=== PATIENT | female | born 1965 | race Caucasian/White ===

== ENCOUNTER 2018-12-04 15:13 | Inpatient (IN) ==
[2018-12-04] MEDS ORDERED: NS 1,000 ML IV ONE ×3 (15:54→17:27)
--- NOTE | 2018-12-04 16:09 | PROVIDER DOCUMENTATION ---
This chart was entered by Ani Kincaid Scribe, acting as scribe for Ahsan Payan CRNP. HPI-General Adult - General Chief Complaint: Flank Pain Stated Complaint: FLANK PAIN Time Seen by Provider: 12/04/18 15:45 Source: patient, family - History of Present Illness -Gen Adult Nature of Presenting Problems: 53 yowf presents to the ed with c/o rt flank/CVA pain onset ths am with nausea. pt has dark urine Location of Pain/Injury: reports: back Quality of Pain: reports: throbbing Severity: reports: moderate Onset/Duration: reports: this morning Timing: reports: still present Context/Activities at Onset: reports: light activity Modifying Factors: improves with: nothing. worse with: urinating Associated Symptoms: reports: back/neck pain (flank pain), genitourinary problems (dark urine), nausea. denies: chest pain, cough, diarrhea, fatigue, fever/chills, shortness of breath, vomiting Similar Symptoms Previously?: No Recently seen or treated by another doctor?: No Review of Systems - Adult - REVIEW OF SYSTEMS - ADULT Constitutional: denies: chills, fever Eyes: reports: no symptoms reported Ears, Nose, Mouth & Throat: reports: no symptoms reported Cardiovascular: denies: chest pain, palpitations Respiratory: denies: cough, shortness of breath, wheezing Gastrointestinal: reports: nausea. denies: abdominal pain, diarrhea, vomiting Genitourinary: reports: see HPI, flank pain, other (drk urine) Musculoskeletal: reports: see HPI, back pain. denies: neck pain Integumentary: reports: no symptoms reported Neurological: reports: no symptoms reported Psychiatric: reports: no symptoms reported Endocrine: reports: no symptoms reported Hematologic/Lymphatic: reports: no symptoms reported Allergic/Immunologic: reports: no symptoms reported All Other Systems: Reviewed and Negative Past History - Adult - PAST MEDICAL HISTORY-ADULT Review of Records: reports: Old Records Reviewed, Nursing Assessment Review, Medications Reviewed, Social history reviewed & non-contributory. Major Childhood Illnesses: reports: denies history Cardiovascular: reports: denies history Respiratory: reports: denies history Gastrointestinal: reports: denies history Obstetrical/Gynecological: reports: denies history Genitourinary: reports: other (kidney repair as a child) Musculoskeletal: reports: denies history Neurological: reports: denies history Endocrine/Immune: reports: denies history Other Conditions: reports: denies history - PRIOR SURGERIES/PROCEDURES Surgical/Procedure History: reports: reviewed, not pertinent - IMMUNIZATION STATUS Childhood Immunizations: See Nurse Assessment Flu Vaccine: See Nurse Assessment - FAMILY HISTORY Family History: reviewed, not pertinent - SOCIAL HISTORY Smoking: cigarettes, greater than 1 pack/day Provider spent 3-5 mins advising pt. on dangers of tobacco.: Discussed manners to quit use, and f/u contacts for add'l counseling. Substance Use: denies Alcohol Use Frequency: never Living Situation: family Physical Exam-General - PHYSICAL EXAM-ADULT Initial Vital Signs Reviewed: Yes - CONSTITUTIONAL General Appearance: appears well, alert, mild distress - EYES Eyes: PERRL/EOMI, pink conjunctivae - HEAD, EARS, NOSE, MOUTH & THROAT HENMT: moist mucous membranes - NECK Neck: non-tender, full range of motion, supple, normal inspection - RESPIRATORY Respiratory: chest non-tender, lungs clear, normal breath sounds - CARDIOVASCULAR Cardiovascular: normal peripheral pulses, regular rate, rhythm, no edema - CHEST (BREASTS) Chest/Breast: deferred - GASTROINTESTINAL (ABDOMEN) Abdominal Exam: normal bowel sounds, non tender, soft - GENITOURINARY Female Genitalia/Pelvic Exam: deferred, other (dark urine) Rectal Exam: deferred Hemoccult Exam: deferred - LYMPHATIC Lymphatic: no adenopathy - MUSCULOSKELETAL Back Exam: CVA tenderness (rt sided) Extremity: normal range of motion, non-tender, normal gait, normal inspection, normal capillary refill, pelvis stable - SKIN Integumentary: normal color, normal turgor, warm/dry - NEUROLOGIC Neurologic: grossly normal - PSYCHIATRIC Psych/Mental Status: normal mood/affect, normal thought content, normal thought process, oriented x 3 Progress - PLAN OF CARE/RESULTS Progress/Plan/Lab Results: Vital Signs - 8 hr 12/04/18 15:35 12/04/18 15:37 Temperature 98.8 F 98.8 F Pulse Rate 98 H 98 H Respiratory Rate 18 16 Blood Pressure 127/71 127/71 O2 Sat by Pulse Oximetry 100 100 Orders Category Date Time Status Saline Loc NOW Care 12/04/18 15:54 Active CBC WITH ELECTRONIC DIFF [HEME] Stat Lab 12/04/18 15:45 Uncollected COMPREHENSIVE METABOLIC PANEL [CHEM] Stat Lab 12/04/18 15:45 Uncollected UA NIMS W/REFLEX CULT [URINALYSIS] Stat Lab 12/04/18 15:44 Ordered 0.9% Sodium Chloride Inj [Ns] 1,000 ml Med 12/04/18 15:54 Active IV 999 mls/hr Laboratory Tests 12/04/18 12/04/18 12/04/18 15:50 16:05 16:05 WBC 31.90 H RBC 4.52 Hgb 13.5 Hct 39.6 MCV 87.6 MCH 29.9 MCHC 34.1 RDW Std Deviation 13.4 Plt Count 343 MPV 9.6 Immature Gran % (Auto) 0.7 H Neut % (Auto) 93.5 H Lymph % (Auto) 1.2 L [place] % (Auto) 4.5 Eos % (Auto) 0.0 Baso % (Auto) 0.1 Immature Gran # (Auto) 0.23 H Neut # (Auto) 29.84 H Lymph # (Auto) 0.38 L [place] # (Auto) 1.42 H Eos # (Auto) 0.00 Baso # (Auto) 0.03 Segmented Neutrophils 91 H Band Neutrophils 4 H Lymphocytes 3 L Monocytes 2 Pathologist Review Sodium 138 Potassium 3.5 Chloride 99 Carbon Dioxide 24 L Anion Gap 15 BUN 13 Creatinine 0.9 Estimated GFR/1.73 m2 > 60 BUN/Creatinine Ratio 14 Glucose 135 H Calculated Osmolality 278 Calcium 8.8 Total Bilirubin 0.90 AST 16 ALT 12 Alkaline Phosphatase 80 Total Protein 6.8 Albumin 4.1 Globulin 2.7 Albumin/Globulin Ratio 1.5 Urine Source CLEAN CATCH Urine Color YELLOW Urine Turbidity HAZY Urine pH 8.0 Ur Specific [place] 1.013 Urine Protein TRACE A Ur Glucose (Stick) NEGATIVE Ur Ketones (Stick) NEGATIVE Urine Blood TRACE A Urine Nitrite POSITIVE A Urine Bilirubin NEGATIVE Urobilinogen Dipstick NORMAL Urine Leukocytes LARGE A Urine WBC (Auto) TNTC A Urine RBC (Auto) <10 U Epithel Cells (Auto) <10 Urine Bacteria (Auto) 4+ Discussed results and plan of care with patient. Patient agrees with plan and verbalizes understanding. Result Diagrams: 12/04/18 16:05 12/04/18 16:05 - CONSULTS/PCP/HOSPITALIST Notification #1 *Consult/PCP/Hospitalist*: Dr. Faust Time Discussed: 17:27 Reason/Comments: Admission Consult Disposition: Admit (get a renal stone search and admit) Departure - Departure Date of Disposition Decision: 12/04/18 Time of Disposition Decision: 17:24 DIAGNOSIS: Tobacco use disorder, Pyelonephritis Disposition: ADMITTED INPATIENT 09 Certified Medical Emergency: Emergent Condition: Stable Referrals and Follow-Ups: Nidia Faust MD [Primary Care Provider] - - Critical Care Note This patient required my direct & personal management of CC.: No Attestation - Physician/ JONAS Attestation Patient care was provided by Advanced Practice Provider:: Yes Advanced Practice Provider:: Ahsan Payan Advanced Practice Provider documentation review:: The Mid-level provider documentation, treatment plan and medical decision making was reviewed by the physician who agrees with all treatment and medical decision making by the MLP. The physician spent face to face time with patient:: No Advanced Practice Provider documentation review:: Supervising physician onsite and consulted in the evaluation and care of this patient. The physician did not have a face to face encounter with the patient. This chart was documented by the indicated scribe, (Ani Kincaid Scribe) and accurately reflects the services I performed and decisions made by me, Ahsan Payan CRNP, as attested by the provider's signature.
[2018-12-04 16:10] LABS: URINE SOURCE CLEAN CATCH
[2018-12-04 16:19] LABS: BILIRUBIN URINE NEGATIVE (NEGATIVE); BLOOD URINE TRACE (NEGATIVE); COLOR YELLOW; GLUCOSE URINE NEGATIVE (NEGATIVE); KETONE URINE NEGATIVE (NEGATIVE); LEUKOCYTES URINE LARGE (NEGATIVE); NITRITE URINE POSITIVE (NEGATIVE); PROTEIN URINE TRACE mg/dL (NEGATIVE); SP GRAVITY URINE 1.013; TURBIDITY URINE HAZY (CLEAR); UROBILINOGEN URINE NORMAL (NORMAL)
[2018-12-04 16:20] LABS: UR EPITHELIAL CELLS <10 /HPF (<10); URINE BACTERIA 4+ /HPF; URINE RBC <10 /HPF (<10); URINE WBC TNTC /HPF (<10)
[2018-12-04 16:24] LABS: BASO# 0.03 X1000 (0.0-0.2); BASO% 0.1 % (0.0-0.8); HEMATOCRIT 39.6 % (37.0-47.0); HEMOGLOBIN 13.5 g/dL (12.0-16.0); IMM GRAN# 0.23 X1000 (0.0-0.04); IMM GRAN% 0.7 % (0.0-0.5); LYMPH# 0.38 X1000 (1.2-3.4); LYMPH% 1.2 % (20.5-51.1); MCH 29.9 PG (27-31); MCHC 34.1 g/dL (33-37); MCV 87.6 FL (81-99); MONO# 1.42 X1000 (0.11-0.59); MONO% 4.5 % (1.7-9.3); MPV 9.6 FL (7.4-10.4); NEUT# 29.84 X1000 (1.4-6.5); NEUT% 93.5 % (42.2-75.2); PLT 343 X1000 (130-400); RBC 4.52 XMIL (4.2-5.4); RDW 13.4 % (11.5-14.5)
[2018-12-04] MEDS ORDERED: ROCEPHIN 1 GM in NS 50 ML IV ONE (16:37)
[2018-12-04 16:41] LABS: AGAP 15; ALB/GLOB RATIO 1.5; ALBUMIN 4.1 g/dL (3.5-5.0); ALKALINE PHOSPHATASE 80 U/L (32-104); BUN 13 mg/dL (8-22); CALCIUM 8.8 mg/dL (8.8-10.2); CHLORIDE 99 mmol/L (98-107); COSMO 278; CREATININE 0.9 mg/dL (0.5-0.9); ESTIMATED GFR > 60; GLUCOSE 135 mg/dL (70-104); GOT 16 U/L (10-30); GPT 12 U/L (10-36); POTASSIUM 3.5 mmol/L (3.5-5.1); SODIUM 138 mmol/L (136-145); TCO2 24 mmol/L (25-35); TOTAL PROTEIN 6.8 g/dL (6.3-8.3)
[2018-12-04 16:55] LABS: BANDS 4 % (0-1); LYMPHS 3 % (21-51); MONO 2 % (1-9); SEGS 91 % (42-75)
[2018-12-04] MEDS ORDERED: NS 1,000 ML ONE (17:19)
[2018-12-04] MEDS ORDERED: ZOFRAN IV ONE (17:22)
[2018-12-04] MEDS ORDERED: MORPHINE IV ONE (17:22)
[2018-12-04] MEDS ORDERED: ZOFRAN IV PRN (17:27)
[2018-12-04] MEDS ORDERED: MORPHINE IV PRN (17:27)
[2018-12-04] MEDS ORDERED: NS 1,000 ML IV SCH (19:00)
--- NOTE | 2018-12-04 19:54 | HISTORY AND PHYSICAL ---
CHIEF COMPLAINT: Right flank pain going to the groin since this morning. HISTORY OF PRESENT ILLNESS: She is a 53-year-old white female who is well known to me with above problems for a one day duration. The patient was seen in the emergency room. She has pyelonephritis on the right side. White cell count 30,000. Urine dipstick positive for infection. She has history of kidney stones. Waiting for CT Renal Stone Search. Basically, admitted to the hospital with pyelonephritis and waiting for results on CT Renal Stone Search. PAST MEDICAL HISTORY: Kidney stones. PAST SURGICAL HISTORY: Right pyeloplasty when she was 13 years old by in [place]. ALLERGIES: Penicillin. MEDICINES: None, other than Bactrim a month ago for UTI. SOCIAL HISTORY: . No children. Postmenopausal. Smoking one pack a day. No alcohol. Working as a manager shipping. FAMILY HISTORY: Dad of MVA. Mom is alive at 62 with diabetes. REVIEW OF SYSTEMS: HEENT: No headache. No vision problem. No earache. No sore throat. Neck: No goiter. No lymphadenopathy. No bruit. Cardiopulmonary: No chest pain, shortness of breath, PND, orthopnea. Gastrointestinal: Right flank pain going to the groin. Nausea , excruciating pain. Fever. Pelvic: Postmenopausal. Nulliparous. Extremities: No swelling of legs. No joint pain. Neurologic: No focal symptoms or weakness. EXAMINATION: Vital Signs: Low-grade fever. Vitals are stable. 5 feet 5; 130 pounds. HEENT: Atraumatic, normocephalic. Pupils equal, reactive to light. TMs are normal. Nose and throat within normal limits. Neck: Supple. No lymphadenopathy. Chest: Bilateral air entry. Heart: Heart sounds are regular, tachycardic. No murmur. Abdomen: Belly is soft. Tender in the right flank area. No signs of peritonitis. Extremities: No peripheral edema , cyanosis. Neurologic: No obvious neurological deficits. INVESTIGATIONS: CBC: White cell count 31, hematocrit 39, platelets 343,000. SMA-7 is normal. Urinalysis positive for infection. CT Renal Stone Search is pending. Chest x-ray stable. ASSESSMENT AND PLAN: A 53-year-old white female admitted to the hospital with right pyelonephritis, elevated white cell count. Possible kidney stones. Plan is IV fluids, IV Levaquin and gentamicin. Pain control with Dilaudid. GI prophylaxis with IV Protonix and Zofran for p.r.n. nausea. Follow up on the pending test and repeat the labs in the morning. cc: Pascual Faust MD MTDD
--- NOTE | 2018-12-04 20:03 | Diag Imaging Result Doc PS360 ---
EXAM: CT RENAL STONE SEARCH INDICATION: right flank pain TECHNIQUE: This exam was performed using automated exposure control, adjustment of mA or kV according to patient size, and/or use of iterative reconstruction technique. COMPARISON: None. FINDINGS: There is opacity at the right lung base suggesting mild subsegmental atelectasis and/or infiltrate. There is trace nonspecific fluid tracking around the liver. The liver, gallbladder, spleen, pancreas, and adrenal glands are grossly unremarkable as imaged. There is bilateral nephrolithiasis including a collection of prominent stones in the right renal pelvis. There is prominent right perinephric stranding and stranding along the right ureter. No obstructing ureteral stone is identified. There is a 7 mm stone that is in the lumen of the urinary bladder on the right. The right renal pelvis and right ureter are somewhat dilated. This stone probably recently passed from the right ureter. The urinary bladder is unremarkable, otherwise. There is an IUD in the endometrial cavity. The reproductive tract is grossly unremarkable, otherwise. The GI tract is essentially unremarkable. IMPRESSION: 1.Bilateral nephrolithiasis with perinephric stranding around the right kidney as well as right periureteral stranding and mild prominence of the right renal collecting system and right ureter with a 7 mm stone in the lumen of the urinary bladder on the right that probably recently passed from the right ureter. 2.Other incidental/nonacute findings detailed above. Electronically signed by Mckay Cunningham 12/04/2018 8:01 PM
[2018-12-04] MEDS: LEVAQUIN 500 MG/D5W 500 MG/100 ML IVPB IV SCH (20:18)
[2018-12-04] MEDS: PROTONIX IV SCH (20:19)
--- NOTE | 2018-12-04 20:20 | Diag Imaging Result Doc PS360 ---
EXAM: CHEST-PORTABLE INDICATION: admit TECHNIQUE: One view COMPARISON: None. FINDINGS: The lungs are grossly clear. There is no discrete pleural fluid collection or pneumothorax. The cardiomediastinal silhouette and central vasculature are grossly unremarkable. IMPRESSION: No evidence of acute pathology by plain radiograph. Electronically signed by Mckay Cunningham 12/04/2018 8:18 PM
[2018-12-04] MEDS: TYLENOL PO PRN (21:02)
[2018-12-04 21:57] LABS: INR 1.07; PROTIME 14.8 Seconds (11.0-16.0)
[2018-12-04 21:58] LABS: PTT 32.9 Seconds (22.3-41.8)
[2018-12-05] MEDS: NS 1,000 ML IV SCH ×3 (01:34→17:02)
[2018-12-05 08:46] LABS: CALCIUM 7.4 mg/dL (8.8-10.2); POTASSIUM 3.5 mmol/L (3.5-5.1)
[2018-12-05 09:00] LABS: HEMOGLOBIN 11.8 g/dL (12.0-16.0); MCH 29.7 PG (27-31); MCHC 33.7 g/dL (33-37); MCV 88.2 FL (81-99); RBC 3.97 XMIL (4.2-5.4); WBC 32.74 X1000 (4.8-10.8)
[2018-12-05] MEDS ORDERED: CALCIUM GLUCONATE 1 GM in NS 50 ML IV ONE (09:12)
[2018-12-05] MEDS: DILAUDID IV PRN ×2 (11:02→17:02)
[2018-12-05] MEDS ORDERED: ROCEPHIN 1 GM in NS 50 ML IV SCH (17:30)
[2018-12-05] MEDS ORDERED: NEOSPORIN G.U. IRRIGANT ONE (17:40)
[2018-12-05] MEDS ORDERED: DIPRIVAN 1% ONE (18:09)
[2018-12-05] MEDS ORDERED: XYLOCAINE-MPF 2% ONE (18:09)
[2018-12-05] MEDS ORDERED: ROBINUL ONE (18:15)
[2018-12-05] MEDS ORDERED: ZOFRAN ONE (18:27)
[2018-12-05] MEDS ORDERED: FENTANYL ONE (18:29)
--- NOTE | 2018-12-05 18:31 | PROGRESS NOTE ---
DATE: 12/05/2018 SUBJECTIVE: The patient is a little stable, still fever, elevated white cell count. CT renal stone search discussed with Dr. Cunningham, radiologist airways operations specialist. Big stone in the right renal pelvis and 7 mm stone in the bladder. She also has intrarenal stones on the left side. OBJECTIVE: Vital signs: Temperature is 98 degrees, pulse is 96. Hemodynamics are stable. HEENT: Within normal limits. Chest: Clear. Heart: Sounds are regular. Belly: Is soft. Tender in the right side. No signs of peritonitis. LABS: CBC. White cell count 32, hematocrit 35, platelets 265,000. SMA 7 sodium 138, potassium 3.5, BUN 14, creatinine 1.0, glucose 113, calcium 7.4. Urine cultures positive for gram-negative rods. Blood cultures are pending. 1. Right-sided pyelonephritis with kidney stone disease. Consult with Dr. Leslie. Discussed with him on the phone. In the meantime continue hydromorphone. 2. Continue IV fluids. 3. IV antibiotics with Levaquin and gentamicin. 4. Hypocalcemia, calcium gluconate. Follow up on CBC, BMP. Appreciated Dr. Leslie' consult and Dr. Monterroso is airways operations specialist this weekend. LEVEL OF DOCUMENTATION: 25 minutes. cc: Pascual Faust MD
[2018-12-05] MEDS ORDERED: NEO-SYNEPHRINE ONE (18:34)
[2018-12-05] MEDS ORDERED: SODIUM CHLORIDE 0.9% 10 ML ONE (18:34)
[2018-12-05] MEDS: LEVAQUIN 500 MG/D5W 500 MG/100 ML IVPB IV SCH (18:40)
[2018-12-05] MEDS: DITROPAN ONE ×2 (19:22→20:38)
[2018-12-05] MEDS: PROTONIX IV SCH (20:38)
--- NOTE | 2018-12-05 20:57 | OPERATIVE NOTE ---
PROCEDURE DATE: 12/05/2018 SURGEON: Igor Leslie MD. PREOPERATIVE DIAGNOSIS: Right pyelonephritis with right renal pelvic stone. POSTOPERATIVE DIAGNOSIS: Right pyelonephritis with right renal pelvic stone. PROCEDURE PERFORMED: Cystoscopic exam, right retrograde ureteral pyelogram, place right double-J stent. ANESTHESIA: General via laryngeal mask. FINDINGS: Cystoscopic exam: Urethra-greater than 21 Maur[place] without stricture. Bladder-normal ureteral orifices bilaterally. There was increased redness around the right ureteral orifice consistent with a recently passed stone. No papillary lesions, trabeculations or diverticula. Right retrograde ureteral pyelogram reveals a normal ureter that goes up into the right renal pelvis. Complete retrograde was not performed to ensure no back pressure was placed to cause infected urine to be placed intravenously. exam normal external female. Normal mucosa. No adnexal masses or tenderness. Palpably normal cervix and uterus. INDICATION FOR PROCEDURE: This 53-year-old female with history of renal lithiasis developed right flank pain and fevers. Evaluation revealed right pyelonephritis with a large right renal pelvic stone. Also noted were very small bilateral renal stones. DESCRIPTION OF PROCEDURE: After informed consent was obtained from the patient and her receiving her routine IV antibiotics, she was taken to the main OR cystoscopy room, placed in supine position. General anesthesia via laryngeal mask was achieved. She was then placed in the low lithotomy position and prepped and draped in the usual sterile fashion for cystoscopic exam. A 21- Mauritian sheath cystoscope was passed through the patient's urethra and bladder, findings noted above. An 8-Mauritian cone-tip catheter was passed through the cystoscope, engaged the right ureteral orifice. Contrast was injected. Findings as noted above. The 8-Mauritian cone-tipped catheter was removed. A 0.035 ZIPwire was passed through the cystoscope and up the right ureter and coiled around the stone. A 7-Mauritian 24 cm double-J stent was passed over the ZIPwire and up into the kidney. The stent removal string was removed. The renal end verified by fluoroscopic exam, bladder end directly visualized. Bladder was drained. Cystoscope was removed. exam performed. Tolerated the procedure well. Estimated blood loss was zero. She was taken to recovery room in good condition. cc: MD Pascual Ferrer MD
--- NOTE | 2018-12-05 21:15 | CONSULTATION ---
DATE OF CONSULTATION: 12/05/2018 CONSULTING PHYSICIAN: Dr. Leslie. REFERRING AND ATTENDING PHYSICIAN: Dr. Faust. HISTORY OF PRESENT ILLNESS: This 53-year-old female has a history of right flank pain and urinary tract infection. Evaluation revealed a right pyelonephritis with a white count of over 30,000. Her CT stone search revealed a 2 cm stone in the right renal pelvis. There was also a much tiny year stone in the lower pole kidney. On the left there was a stone that was probably 2 mm nonobstructing. There appeared to be a calcification in the bladder that could have been a recently passed stone. The patient states she has a history of stones and usually passes them without problems. She states she had a right UPJ obstruction repaired at age 13. She states she has been having severe right flank and upper abdominal pain for the last several days. A urine culture is growing gram-negative rods. PAST MEDICAL HISTORY: As noted in the HPI. No other problems. CURRENT MEDICATIONS: Negative. PAST SURGICAL HISTORY: Right pyeloplasty and appendectomy at age 13, wisdom teeth extraction at age 19. SOCIAL HISTORY: Cigarettes, a pack a day for many years. ETOH use negative. She is with no children. ALLERGIES: She is allergic to penicillin. She states her mother has always told her that. She does not know if she has any type of reaction. REVIEW OF SYSTEM: She denies any problems with hypertension, heart disease, diabetes, strokes, seizures, recent pulmonary or bowel problems. PHYSICAL EXAMINATION: General: A normally developed, well-nourished, age apparent, white female, oriented in all ways and cooperative. HEENT: Normal for age. Lungs: Clear. Cardiovascular: Regular rate and rhythm. Abdomen: Mildly protuberant, soft. Direct tenderness in the right upper quadrant and flank, no guarding or rebound. Normal bowel sounds. Genitourinary: Deferred until surgery. Extremities: No clubbing, cyanosis, or edema. Neuro: No focal deficits. LABORATORY EVALUATION: Has a white count of 32.7, hemoglobin 11.8, hematocrit 35, platelets are 265,000. Serum electrolytes are normal except CO2 is 18, BUN 14, creatinine 1.0. Urine cultures are growing gram-negative mary. Blood cultures are pending. A CT stone search is as noted in the HPI. IMPRESSION: 1. Bilateral renal stones with a large stone in the right renal pelvis. 2. Right pyelonephritis. 3. Right flank and abdominal pain. PLAN: Cystoscopic exam, right retrograde, attempt placement of a right double-J stent. If unable to place the double-J stent retrograde will schedule percutaneous placement of a nephrostomy tube. The planned procedure, benefits versus risks, and possible complications including but not limited to bleeding, continued infection, not being able to place the stent, need for further surgery, need for treatment of the large right renal pelvic stone after her infection resolves was discussed. She seems to understand and desires to proceed. cc: MD Pascual Ferrer MD
[2018-12-06] MEDS ORDERED: DITROPAN PO PRN (02:39)
[2018-12-06] MEDS: DILAUDID IV PRN ×3 (04:29→17:27)
[2018-12-06] MEDS: NS 1,000 ML IV SCH ×4 (04:31→22:55)
[2018-12-06 07:56] LABS: BASO# 0.02 X1000 (0.0-0.2); BASO% 0.1 % (0.0-0.8); EOS# 0.15 X1000 (0.0-0.7); EOS% 0.6 % (0.0-10.0); HEMATOCRIT 33.3 % (37.0-47.0); HEMOGLOBIN 11.2 g/dL (12.0-16.0); IMM GRAN# 0.15 X1000 (0.0-0.04); IMM GRAN% 0.6 % (0.0-0.5); LYMPH# 0.65 X1000 (1.2-3.4); LYMPH% 2.5 % (20.5-51.1); MCH 29.6 PG (27-31); MCHC 33.6 g/dL (33-37); MCV 88.1 FL (81-99); MONO# 1.08 X1000 (0.11-0.59); MONO% 4.1 % (1.7-9.3); MPV 10.4 FL (7.4-10.4); NEUT# 24.45 X1000 (1.4-6.5); NEUT% 92.1 % (42.2-75.2); PLT 208 X1000 (130-400); RBC 3.78 XMIL (4.2-5.4); RDW 14.5 % (11.5-14.5)
[2018-12-06 08:31] LABS: AGAP 12; BANDS 16 % (0-1); BUN 15 mg/dL (8-22); CALCIUM 7.9 mg/dL (8.8-10.2); CHLORIDE 108 mmol/L (98-107); COSMO 277; CREATININE 0.9 mg/dL (0.5-0.9); ESTIMATED GFR > 60; GLUCOSE 111 mg/dL (70-104); LYMPHS 2 % (21-51); POTASSIUM 3.6 mmol/L (3.5-5.1); SEGS 82 % (42-75); SODIUM 138 mmol/L (136-145); TCO2 18 mmol/L (25-35)
[2018-12-06] MEDS ORDERED: ROCEPHIN 2 GM in NS 50 ML IV ONE (08:34)
--- NOTE | 2018-12-06 10:01 | PROGRESS NOTE ---
DATE: 12/06/2018 SUBJECTIVE: Ms. Spence is doing fair. A 53-year-old white female patient admitted with right flank pain going to the groin. The patient was found to have pyelonephritis on the right side. The patient had leukocytosis. Urinalysis did reveal UTI. CT for renal stone search revealed a kidney stone. The patient was admitted. The patient underwent cystoscopy, right retrograde pyelograms and right double-J stent placement. The patient tolerated the procedure well. Urine culture growing E coli which was resistant to Levaquin. Her antibiotics were changed to Rocephin. Patient was complaining of shortness of breath, some chest pain. The patient is a vague historian. The patient does feel weak. No nausea or vomiting. No diarrhea, blood, or mucus in the stool. PAST MEDICAL HISTORY: Significant for pyeloplasty, kidney stone. Her admission history and physical and Urology consult noted. OBJECTIVE: Vital Signs: Blood pressure 125/74, pulse 85, respirations 18 to 20, temperature 98.8 degrees. Skin: Normal turgor. Neck: Supple. No JVD. Lungs: Bilateral good air entry present. CVS: S1 and S2 heard. Abdomen: Soft. Mild epigastric tenderness. No guarding or rigidity. Extremities: No cyanosis, clubbing. No acute DVT. MEDICAL TECHNICIAN ASSISTANT: Alert, awake, able to move all 4 limbs. LAB DATA: The patient's lab data done today did reveal leukocytosis. WBC count 26.5, with left shift. Hemoglobin 11.2, hematocrit 33.3, platelet count was 208. Electrolytes: BUN was 15, creatinine 0.9. Consideration of pyelonephritis, kidney stone, leukocytosis and shortness of breath. I am going to get cardiac isoenzymes, proBNP, chest x-ray for further evaluation. Continue the rest of the treatment. We changed her antibiotics as per urine culture result. PLAN: Overall plan discussed with the patient and she is in agreement. cc: MD Pascual Lemus MD
--- NOTE | 2018-12-06 10:03 | Diag Imaging Result Doc PS360 ---
EXAM: CHEST-PORTABLE HISTORY: sob TECHNIQUE: Portable chest single view COMPARISON: 12/04/2018 FINDINGS: Interval development of vascular distention with basilar infiltrates and atelectasis. There are also small pleural effusions. IMPRESSION: Interval worsening. Follow-up PA and lateral recommended. Electronically signed by Ronal Enamorado 12/06/2018 10:01 AM
[2018-12-06 10:17] LABS: ALLEN TEST YES; BE -6.6 mmoll (-3.0-3.0); BLOOD TYPE ARTERIAL; HCO3-(ACT) 19.7 mmoll (20.0-26.0); METHB 1.2 % (0.0-1.5); MODALITY CANNULA; O2(CT) 14.9 mL/dL (15.0-23.0); O2HB 94.1 % (95.0-99.0); PCO2(98.6) 33 mmHg (35-45); PO2(98.6) 75 mmHg (60-100); SAMPLE BLOOD; SAO2 96.9 % (95.0-100.0); THB 11.2 g/dL (11.5-17.4); pH(98.6) 7.35 (7.35-7.45)
[2018-12-06] MEDS: TYLENOL PO PRN (17:27)
[2018-12-06] MEDS ORDERED: LASIX IV ONE (19:38)
[2018-12-06] MEDS: PROTONIX IV SCH (19:59)
[2018-12-06] MEDS: SODIUM CHLORIDE 0.9% INJ SCH (19:59)
[2018-12-07] MEDS: DILAUDID IV PRN ×4 (07:45→22:08)
[2018-12-07 07:47] LABS: BASO# 0.02 X1000 (0.0-0.2); BASO% 0.1 % (0.0-0.8); EOS# 0.04 X1000 (0.0-0.7); EOS% 0.2 % (0.0-10.0); HEMOGLOBIN 11.6 g/dL (12.0-16.0); IMM GRAN# 0.08 X1000 (0.0-0.04); IMM GRAN% 0.4 % (0.0-0.5); LYMPH# 0.71 X1000 (1.2-3.4); LYMPH% 3.2 % (20.5-51.1); MCH 29.6 PG (27-31); MCHC 34.1 g/dL (33-37); MCV 86.7 FL (81-99); MONO# 1.41 X1000 (0.11-0.59); MONO% 6.4 % (1.7-9.3); MPV 10.3 FL (7.4-10.4); NEUT# 19.94 X1000 (1.4-6.5); NEUT% 89.7 % (42.2-75.2); PLT 195 X1000 (130-400); RBC 3.92 XMIL (4.2-5.4); RDW 14.4 % (11.5-14.5)
[2018-12-07 08:11] LABS: AGAP 11; BUN 11 mg/dL (8-22); CALCIUM 7.6 mg/dL (8.8-10.2); CHLORIDE 106 mmol/L (98-107); COSMO 280; CREATININE 0.9 mg/dL (0.5-0.9); ESTIMATED GFR > 60; GLUCOSE 128 mg/dL (70-104); POTASSIUM 3.1 mmol/L (3.5-5.1); SODIUM 140 mmol/L (136-145); TCO2 23 mmol/L (25-35)
[2018-12-07 08:12] LABS: BANDS 14 % (0-1); EOS 2 % (1-10); LYMPHS 6 % (21-51); MONO 2 % (1-9); SEGS 76 % (42-75)
[2018-12-07] MEDS ORDERED: LASIX IV ONE (09:42)
[2018-12-07] MEDS ORDERED: KLOR-CON PO ONE (09:42)
--- NOTE | 2018-12-07 10:06 | PROGRESS NOTE ---
DATE: 12/07/2018 SUBJECTIVE: Ms. Spence is doing fair. The patient is still having pain in the right flank and some chills. No high-grade fever. I reviewed her chest x-ray yesterday which was showing interval worsening, vascular distention with basilar infiltrate and atelectasis. I gave her some Lasix. We changed her antibiotics yesterday as per culture results. The patient is feeling some better. No nausea. Denied any dysuria or hematuria. Oral intake is some better. OBJECTIVE: Vital Signs: Blood pressure 152/80, pulse 96, respirations 18, temperature 98.6 degrees. Neck: Supple. No JVD. Lungs: Bibasilar crepitations. Heart: S1 and S2 heard. Abdomen: Soft, globular. Mild tenderness, right flank. Extremities: No cyanosis, clubbing. No acute DVT. SORT LINE: Alert, awake. Able to move all 4 limbs. Lab Data: Done today, leukocyte count gradually improving. It was 22.2. Hemoglobin 11.6, hematocrit 34, platelet count was 195,000. The patient does have a left shift. Blood gas done yesterday noted. Electrolytes done today did reveal hypokalemia. Calcium was 7.6, BUN 11, creatinine 0.9. Her proBNP was elevated. Chest x-ray noted. PLAN: I am going to give her a small dose of Lasix, supplement potassium, continue IV antibiotics, close observation. Overall plan discussed at length with the patient and she is in agreement. PROBLEMS: Include: 1. Pyelonephritis. 2. Hypokalemia. 3. Possible fluid overload. 4. Gastritis and reflux disease. 5. Patient does have a history of a kidney stone. cc: MD Pascual Lemus MD
[2018-12-07 10:44] LABS: ALB/GLOB RATIO 0.8; ALBUMIN 2.6 g/dL (3.5-5.0); DIRECT BILIRUBIN 0.1 mg/dL (0.00-0.20); MAGNESIUM 1.7 mg/dL (1.5-2.7); TOTAL BILIRUBIN 0.42 mg/dL (0.20-1.00); TOTAL PROTEIN 5.8 g/dL (6.3-8.3)
[2018-12-07] MEDS: ROCEPHIN 2 GM in NS 50 ML IV SCH (10:44)
[2018-12-07] MEDS: NS 1,000 ML IV SCH ×2 (10:45→22:09)
[2018-12-07] MEDS: PROTONIX IV SCH (22:09)
[2018-12-08] MEDS: DILAUDID IV PRN ×2 (04:26→17:22)
[2018-12-08 07:40] LABS: BASO# 0.04 X1000 (0.0-0.2); BASO% 0.2 % (0.0-0.8); EOS% 1.1 % (0.0-10.0); HEMATOCRIT 35.6 % (37.0-47.0); HEMOGLOBIN 12.1 g/dL (12.0-16.0); IMM GRAN# 0.15 X1000 (0.0-0.04); IMM GRAN% 0.9 % (0.0-0.5); LYMPH# 1.35 X1000 (1.2-3.4); LYMPH% 7.8 % (20.5-51.1); MCV 85.4 FL (81-99); MONO% 14.4 % (1.7-9.3); MPV 10.3 FL (7.4-10.4); NEUT# 13.16 X1000 (1.4-6.5); NEUT% 75.6 % (42.2-75.2); PLT 244 X1000 (130-400); RBC 4.17 XMIL (4.2-5.4); RDW 14.3 % (11.5-14.5)
[2018-12-08 07:50] LABS: AGAP 11; BUN 8 mg/dL (8-22); CALCIUM 8.2 mg/dL (8.8-10.2); CHLORIDE 104 mmol/L (98-107); COSMO 281; CREATININE 0.8 mg/dL (0.5-0.9); ESTIMATED GFR > 60; GLUCOSE 117 mg/dL (70-104); POTASSIUM 3.1 mmol/L (3.5-5.1); SODIUM 141 mmol/L (136-145); TCO2 26 mmol/L (25-35)
[2018-12-08] MEDS ORDERED: LASIX IV ONE (08:42)
--- NOTE | 2018-12-08 10:00 | Diag Imaging Result Doc PS360 ---
EXAM: RETROGRADES 2 OR 3 FILMS HISTORY: RIGHT RETROGRADE AND STENT PLACEMENT, RIGHT KIDNEY STONE TECHNIQUE: 22 films submitted COMPARISON: None. FINDINGS: There are calcifications in the right renal pelvis. Right retrograde performed. No obstruction to retrograde flow. No filling defect or stricture within the ureter. A wire was placed within the ureter with a ureteral stent. IMPRESSION: Right renal stones with a right ureteral stent placed Electronically signed by Ronal Enamorado 12/08/2018 9:58 AM
[2018-12-08] MEDS: ROCEPHIN 2 GM in NS 50 ML IV SCH (11:26)
[2018-12-08] MEDS: NS 1,000 ML IV SCH (11:42)
[2018-12-08] MEDS: POTASSIUM CHLORIDE 60 MEQ in NS 500 ML IV SCH ×2 (11:42→17:22)
[2018-12-08] MEDS: ULTRACET 37.5MG/325MG PO PRN (15:00)
[2018-12-08] MEDS: SODIUM CHLORIDE 0.9% INJ SCH (22:16)
[2018-12-08] MEDS: PROTONIX IV SCH (22:16)
--- NOTE | 2018-12-09 01:12 | PROGRESS NOTE ---
DATE: 12/08/2018 SUBJECTIVE: The patient is in a lot of pain. I appreciated Dr. Leslie consult. Double-J stent placed and she has volume overload and shortness of breath, chest x-ray, and some fluid in the right base. She still complains of pain. REVIEW OF SYSTEMS: Pain and low-grade fever of 99.7, tachycardic. PHYSICAL EXAMINATION: Vital Signs: Stable. Is and Os are positive. HEENT: Within normal limits. Neck: Supple. Lungs: Some crackles in the right base. Heart: Sounds are regular. Abdomen: Belly is soft. Tender in the right flank area. No signs of peritonitis. Extremities: No peripheral edema, cyanosis. Neurologic: There is no neurological deficits. LABORATORY DATA: CBC: White cell count 17, hematocrit 35, platelets 244,000 ABG: pH is 7.35, pCO2 of 33, PO2 of 75. SMA 7: Sodium 140, potassium 3.1, chloride 104, BUN 8, creatinine 0.8, glucose 117. LFTs were normal, blood cultures are negative, urine cultures showed E. Coli, ESBL negative. ASSESSMENT AND PLAN: 1. Volume overload. Positive input and output. Decreased the intravenous fluids, keep veins open, and Lasix 40 mg 1 dose. 2. Pyelonephritis on the right side. Double-J stent. Currently she is on ceftriaxone. The patient is sensitive to cefazolin. Extended spectrum beta-lactamases negative. 3. Continue pain control. 4. Continue the deep venous thrombosis prophylaxis. 5. Repeat the blood tests and chest x-ray in the morning. 6. Continue present treatment. LEVEL OF DOCUMENTATION: 25 minutes. cc: Pascual Faust MD MTDD
[2018-12-09] MEDS: DILAUDID IV PRN ×3 (04:07→20:33)
[2018-12-09 07:32] LABS: BASO% 0.5 % (0.0-0.8); EOS# 0.24 X1000 (0.0-0.7); EOS% 1.3 % (0.0-10.0); HEMATOCRIT 35.9 % (37.0-47.0); HEMOGLOBIN 12.5 g/dL (12.0-16.0); IMM GRAN# 0.23 X1000 (0.0-0.04); IMM GRAN% 1.3 % (0.0-0.5); LYMPH# 1.94 X1000 (1.2-3.4); LYMPH% 10.6 % (20.5-51.1); MCH 29.1 PG (27-31); MCHC 34.8 g/dL (33-37); MCV 83.5 FL (81-99); MONO# 2.75 X1000 (0.11-0.59); MPV 10.3 FL (7.4-10.4); NEUT# 13.02 X1000 (1.4-6.5); NEUT% 71.3 % (42.2-75.2); PLT 275 X1000 (130-400); WBC 18.28 X1000 (4.8-10.8)
[2018-12-09 07:53] LABS: AGAP 11; BUN 8 mg/dL (8-22); CALCIUM 8.6 mg/dL (8.8-10.2); CHLORIDE 103 mmol/L (98-107); COSMO 278; CREATININE 0.7 mg/dL (0.5-0.9); ESTIMATED GFR > 60; GLUCOSE 106 mg/dL (70-104); POTASSIUM 3.1 mmol/L (3.5-5.1); SODIUM 140 mmol/L (136-145); TCO2 26 mmol/L (25-35)
[2018-12-09 08:00] LABS: BANDS 4 % (0-1); LYMPHS 10 % (21-51); MONO 10 % (1-9); SEGS 74 % (42-75)
[2018-12-09] MEDS ORDERED: KLOR-CON PO ONE (08:01)
[2018-12-09] MEDS: LOVENOX SUBQ SCH (08:27)
[2018-12-09] MEDS: ROCEPHIN 2 GM in NS 50 ML IV SCH (08:28)
--- NOTE | 2018-12-09 08:31 | Diag Imaging Result Doc PS360 ---
EXAM: CHEST-2 VIEWS HISTORY: hypoxia TECHNIQUE: Chest two views COMPARISON: 12/06/2018 FINDINGS: The lungs are well expanded except for basilar atelectasis/and or small infiltrates. The heart is not enlarged. The vessels are not distended. There are small pleural effusions. These are smaller than on the prior exam. IMPRESSION: Overall interval improvement. Electronically signed by Ronal Enamorado 12/09/2018 8:29 AM
[2018-12-09] MEDS: NS 1,000 ML IV SCH (09:56)
--- NOTE | 2018-12-09 19:08 | PROGRESS NOTE ---
DATE: 12/09/2018 SUBJECTIVE: The patient is still in lot of pain. Follow up chest x-ray fluid in the right base. Discontinue IV fluids. Lasix was given. OBJECTIVE: Temperature is 98.4, pulse is 83, blood pressure is 115/71, room air 99%, I's and O's negative for 3 L.Chest: Improved air entry. Distant heart sounds. Belly: Is soft. Tender in the right side. No neurological deficits. INVESTIGATIONS: CBC, white cell count 18, hematocrit 35, platelet 275,000. SMA 7 is normal. Potassium 3.1. ASSESSMENT AND PLAN: 1. Volume overload with mild congestive heart failure. Excellent diuresis, decreased intravenous fluids. 2. Hypokalemia, replace the potassium. 3. Deep vein thrombosis prophylaxis with Lovenox. 4. Pyelonephritis on the right side. Continue on IV ceftriaxone, white cell count still high, blood cultures are negative. 5. Still in symptomatic waiting for lithotripsy will discuss with Dr. Leslie. Continue present treatment an added incentive spirometry. LEVEL OF DOCUMENTATION: 25 minutes. cc: Pascual Faust MD
[2018-12-09] MEDS: SODIUM CHLORIDE 0.9% INJ SCH (20:34)
[2018-12-09] MEDS: PROTONIX IV SCH (20:34)
[2018-12-10 06:51] LABS: BASO# 0.32 X1000 (0.0-0.2); BASO% 1.9 % (0.0-0.8); EOS# 0.27 X1000 (0.0-0.7); EOS% 1.6 % (0.0-10.0); HEMOGLOBIN 12.5 g/dL (12.0-16.0); IMM GRAN# 0.23 X1000 (0.0-0.04); IMM GRAN% 1.4 % (0.0-0.5); LYMPH# 2.51 X1000 (1.2-3.4); MCH 29.1 PG (27-31); MCHC 34.7 g/dL (33-37); MCV 83.7 FL (81-99); MONO# 2.21 X1000 (0.11-0.59); MONO% 13.2 % (1.7-9.3); MPV 9.9 FL (7.4-10.4); NEUT# 11.21 X1000 (1.4-6.5); NEUT% 66.9 % (42.2-75.2); PLT 342 X1000 (130-400); RDW 14.2 % (11.5-14.5); WBC 16.75 X1000 (4.8-10.8)
[2018-12-10 07:10] LABS: AGAP 14; BUN 10 mg/dL (8-22); CALCIUM 8.8 mg/dL (8.8-10.2); CHLORIDE 100 mmol/L (98-107); COSMO 277; CREATININE 0.6 mg/dL (0.5-0.9); ESTIMATED GFR > 60; GLUCOSE 100 mg/dL (70-104); SODIUM 139 mmol/L (136-145); TCO2 25 mmol/L (25-35)
[2018-12-10 07:48] LABS: BANDS 1 % (0-1); LYMPHS 24 % (21-51); MONO 6 % (1-9); SEGS 66 % (42-75)
[2018-12-10] MEDS: NS 1,000 ML IV SCH ×2 (08:45→19:52)
[2018-12-10] MEDS: LOVENOX SUBQ SCH (08:45)
[2018-12-10] MEDS: ROCEPHIN 2 GM in NS 50 ML IV SCH (08:45)
[2018-12-10] MEDS: DILAUDID IV PRN ×2 (11:02→22:08)
--- NOTE | 2018-12-10 19:38 | PROGRESS NOTE ---
DATE: 12/10/2018 SUBJECTIVE: The patient is a little better. Still white cell count is high. OBJECTIVE: Vital signs: Temperature is 98, vitals are stable. HEENT: Within normal limits. Lungs: Improved air entry on the right lung. Heart: Sounds are regular. Abdomen: Belly is soft, nontender on the left side. Neurologic: No neurological deficits. INVESTIGATIONS: White cell count 16, hematocrit 36, platelets 342. SMA 7 is potassium 3.0. ASSESSMENT AND PLAN: 1. Hypokalemia replace the potassium. 2. E coli. On IV ceftriaxone. 3. Elevated white cell count with pyelonephritis, waiting for lithotripsy in the morning. We will ask Dr. Leslie to follow up on that. 4. Volume overload. Stop the fluids. Excellent diuresis. 5. Continue on incentive spirometry. LEVEL OF DOCUMENTATION: 15 minutes. cc: Pascual Faust MD
[2018-12-10] MEDS: SODIUM CHLORIDE 0.9% INJ SCH (19:42)
[2018-12-10] MEDS: PROTONIX IV SCH (19:42)
[2018-12-10] MEDS: ULTRACET 37.5MG/325MG PO PRN (19:50)
[2018-12-11 07:29] LABS: BASO# 0.18 X1000 (0.0-0.2); BASO% 1.2 % (0.0-0.8); EOS# 0.36 X1000 (0.0-0.7); EOS% 2.4 % (0.0-10.0); HEMATOCRIT 35.2 % (37.0-47.0); HEMOGLOBIN 12.3 g/dL (12.0-16.0); IMM GRAN# 0.25 X1000 (0.0-0.04); IMM GRAN% 1.7 % (0.0-0.5); LYMPH# 2.62 X1000 (1.2-3.4); LYMPH% 17.5 % (20.5-51.1); MCH 29.1 PG (27-31); MCHC 34.9 g/dL (33-37); MCV 83.4 FL (81-99); MPV 9.8 FL (7.4-10.4); NEUT# 10.06 X1000 (1.4-6.5); NEUT% 67.2 % (42.2-75.2); PLT 456 X1000 (130-400); RBC 4.22 XMIL (4.2-5.4); RDW 14.3 % (11.5-14.5); WBC 14.97 X1000 (4.8-10.8)
[2018-12-11 07:45] LABS: AGAP 13; BUN 17 mg/dL (8-22); CALCIUM 8.3 mg/dL (8.8-10.2); CHLORIDE 101 mmol/L (98-107); COSMO 277; CREATININE 0.5 mg/dL (0.5-0.9); ESTIMATED GFR > 60; GLUCOSE 99 mg/dL (70-104); POTASSIUM 2.9 mmol/L (3.5-5.1); SODIUM 138 mmol/L (136-145); TCO2 24 mmol/L (25-35)
[2018-12-11] MEDS: ROCEPHIN 2 GM in NS 50 ML IV SCH (08:37)
[2018-12-11] MEDS: LOVENOX SUBQ SCH (09:43)
[2018-12-11] MEDS: NS 1,000 ML IV SCH ×2 (09:43→19:54)
[2018-12-11] MEDS: POTASSIUM CHLORIDE 60 MEQ in NS 500 ML IV SCH ×2 (09:44→22:19)
[2018-12-11] MEDS ORDERED: DIPRIVAN 1% ONE (12:27)
[2018-12-11] MEDS ORDERED: QUELICIN (DOSE) ONE ×2 (12:28→13:10)
[2018-12-11] MEDS ORDERED: XYLOCAINE-MPF 2% ONE (12:28)
[2018-12-11] MEDS ORDERED: ZOFRAN ONE (12:40)
[2018-12-11] MEDS ORDERED: MANNITOL ONE (12:59)
[2018-12-11] MEDS ORDERED: TORADOL ONE (13:06)
--- NOTE | 2018-12-11 18:28 | OPERATIVE NOTE ---
PROCEDURE DATE: 12/11/2018 SURGEON: Igor Leslie MD PREOPERATIVE DIAGNOSES: 1. Right ureteropelvic junction (UPJ) stone. 2. Right pyelonephritis. 3. Indwelling right double-J stent. POSTOPERATIVE DIAGNOSES: 1. Right ureteropelvic junction (UPJ) stone. 2. Right pyelonephritis. 3. Indwelling right double-J stent. PROCEDURE PERFORMED: 1. Right extracorporeal shockwave lithotripsy. 2. Cystoscopic exam. 3. Removal of right double-J stent. ANESTHESIA: General via laryngeal mask. FINDINGS: Cystoscopic exam: Urethra greater than 21-Uzbek without stricture. Bladder -normal ureteral orifices bilaterally with double-J stent in place on the right. No papillary lesions. No trabeculations. No diverticula. The right double-J stent was easily removed. INDICATION FOR PROCEDURE: This 53-year-old female was admitted with high white count and right flank pain with nausea. Evaluation revealed a large right ureteropelvic junction stone (about 2 cm). She underwent placement of a right double-J stent and received IV antibiotics to treat the right pyelonephritis. She now presents for shockwave lithotripsy of the large right renal pelvic stone and removal of the right double-J stent. DESCRIPTION OF PROCEDURE: After informed consent was obtained from the patient and her receiving IV antibiotics, she was taken to the main OR, placed in the supine position. General anesthesia via laryngeal mask was achieved. She was then placed in a proper position for right extracorporeal shockwave lithotripsy. The stone received 3000 shocks, starting at energy level 1 and ramping to energy level 7. The stone was well fragmented at completion of the procedure. She received 12.5 g of mannitol at the start of the case. Total fluoroscopy time was 1 minute 28 seconds. After completion of shockwave lithotripsy, she was placed in the frog-legged position, and prepped and draped in the usual sterile fashion for cystoscopic exam. An inflatable [facility] cystoscope was passed through the patient's urethra and into the bladder. The grasping forceps were placed and the double-J stent was grasped and easily removed. The bladder was drained. Cystoscope was removed. She tolerated the procedure well. Estimated blood loss was zero. She was taken to the recovery room in good condition. cc: MD Pascual Ferrer MD
[2018-12-11] MEDS: PROTONIX IV SCH (19:53)
[2018-12-11] MEDS: ULTRACET 37.5MG/325MG PO PRN (19:53)
[2018-12-11] MEDS: SODIUM CHLORIDE 0.9% INJ SCH (19:53)
--- NOTE | 2018-12-11 20:18 | PROGRESS NOTE ---
DATE: 12/11/2018 SUBJECTIVE: The patient is a little better. Waiting for lithotripsy today. OBJECTIVE: Vital signs: On examination, temperature is 97 degrees, vitals are stable. HEENT: Within normal limits. Neck: Supple. Chest: Clear. Heart: Sounds are regular. Abdomen: Belly is soft. Tender in the right side. DIAGNOSTIC STUDIES: White cell count coming down to 14, hematocrit 35, platelets 456,000. Potassium 2.9. ASSESSMENT AND PLAN: 1. Hypokalemia. Replace the potassium. 2. Elevated white cell count is decreasing from pyelonephritis on IV ceftriaxone. 3. Waiting for lithotripsy and based on that, further recommendations will be followed. 4. Repeat the CBC in the morning and we will follow up. LEVEL OF DOCUMENTATION: 25 minutes. cc: Pascual Faust MD
[2018-12-11] MEDS: DILAUDID IV PRN (22:20)
[2018-12-12] MEDS: DILAUDID IV PRN (02:34)
[2018-12-12 07:46] LABS: HEMATOCRIT 33.5 % (37.0-47.0); HEMOGLOBIN 11.3 g/dL (12.0-16.0); MCH 29.3 PG (27-31); MCHC 33.7 g/dL (33-37); MCV 86.8 FL (81-99); MPV 9.5 FL (7.4-10.4); RBC 3.86 XMIL (4.2-5.4); RDW 14.8 % (11.5-14.5); WBC 16.28 X1000 (4.8-10.8)
[2018-12-12 08:11] VITALS: BP 177/88
[2018-12-12 08:24] LABS: AGAP 11; BUN 11 mg/dL (8-22); CHLORIDE 108 mmol/L (98-107); COSMO 282; CREATININE 0.6 mg/dL (0.5-0.9); ESTIMATED GFR > 60; GLUCOSE 93 mg/dL (70-104); SODIUM 142 mmol/L (136-145); TCO2 23 mmol/L (25-35)
[2018-12-12] MEDS: NS 1,000 ML IV SCH (09:18)
[2018-12-12] MEDS: LOVENOX SUBQ SCH (09:19)
[2018-12-12] MEDS: ROCEPHIN 2 GM in NS 50 ML IV SCH (09:19)
[2018-12-12] MEDS ORDERED: FLOMAX PO SCH (15:00)
--- NOTE | 2018-12-14 22:59 | DISCHARGE SUMMARY ---
ADMISSION DATE: 12/04/2018 DISCHARGE DATE: 12/12/2018 DISCHARGING DIAGNOSIS: Right-sided pyelonephritis, due to E. Coli from staghorn calculus in the right renal pelvis. SECONDARY DIAGNOSES: 1. History of kidney stones. 2. History of substance abuse, with tobacco abuse. 3. Volume overload, with congestive heart failure. 4. Hypokalemia. 5. History of IUD in the endometrium. CONSULTATIONS: Dr. Leslie. PROCEDURES: 1. Cystoscopy, retrograde pyelogram with double-J stent. 2. Lithotripsy and removal of double-J stent. BRIEF HISTORY: Please see the H and P that was done on 12/04/2018. In brief, she is a 53-year- old white female who was admitted to the hospital with right-sided abdominal pain, with white cell count 32,000, briefly hypotensive. Patient was diagnosed with right-sided pyelonephritis, with large kidney stone in the right renal pelvis, and 7 mm stone in the UV junction close to the bladder. HOSPITAL COURSE: Panculture workup was done. Blood cultures were negative. Urine culture showed ESBL negative E. coli. The patient was given IV fluids, followed by IV antibiotics, with second- generation cephalosporins and gentamicin. White cell count slowly coming down. CT renal stone search findings discussed with the patient. Urology consult was obtained by Dr. Leslie. Initially, he put a double-J stent. During this hospital course, the patient was given nicotine cessation programs. She got short of breath due to volume overload. Subsequently, got better after discontinuing fluids and diuresis. Patient was given instructions for incentive spirometry. After her clinical situation improves, the patient had a lithotripsy done, with good results, and removal of double-J stent. The patient came back to the baseline. LABORATORIES: At the time of discharge, white cell count 16.2, hematocrit 33, platelets 492,000. SMA-7 is normal. The patient also had hypokalemia. Replaced the potassium. Blood cultures were negative. Urine cultures positive for E. coli. RADIOLOGY REPORTS: Renal CT: Bilateral renal stones. Large staghorn calculus in the right renal pelvis. A 7 mm stone in the lumen of the urinary bladder. There is also an IUD in the endometrial cavity. DISCHARGE INSTRUCTIONS: 1. Quit smoking. 2. Macrobid 100 p.o. b.i.d. for 10 days. 3. Potassium 10 mEq daily. 4. Low oxalate diet, as discussed. 5. Follow up in my office in 10 days. cc: MD Igor Cloud MD MTDD
== END 2018-12-12 09:52 | disposition home or self-care (01) | DRG 661 ==
LOC: ED 15:13 → EDIPHOLD 15:14 → 3N 12-05 00:12
PROVIDERS: ADMIT Internal Medicine; ATTEND Internal Medicine
PROC: UR.ESWL (2018-12-11 12:31)
CPT/HCPCS: 71010; 71020; 71045; 71046; 74176; 74420; 80048; 80053; 80076; 81001; 82550; 82805; 83605; 83735; 83880; 84484; 85025; 85027; 85610; 85730; 87040; 87077; 87088; 87186; 93005; 94761; 94799; 96361; 96365; 96375; 99285; A9270; C9113; J0330; J0610; J0696; J1170; J1650; J1885; J1940; J1956; J2150; J2270; J2370; J2405; J3010; J3480; J7030; J7040; Q9966; Q9967; S0164